=== PATIENT | male | born 1955 | race Caucasian/White ===

== ENCOUNTER 2017-05-15 04:53 | Observation (INO) | payer OTHER ==
[2017-05-15] MEDS ORDERED: Acetaminophen 500 MG TAB ONE (05:18)
[2017-05-15 05:48] LABS: #Eosinphils 0.1 thou/uL (0.0-0.7); #Lymphocytes 0.6 thou/uL (1.20-3.40); #Monocytes 0.8 thou/uL (0.11-0.59); #Neutrophils 5.7 thou/uL (1.40-6.50); %Basophils 0.4 % (0.0-1.0); %Eosinophils 0.8 % (0.0-10.0); %Lymphocytes 8.9 % (21.0-51.0); Hematocrit 42.8 % (42.0-52.0); Mean Platelet Volume 7.7 fL (7.4-10.4); Red Blood Cell (RBC) Count 4.39 mill/uL (4.70-6.10); White Blood Cell (WBC) Count 7.3 thou/uL (4.8-10.8)
[2017-05-15] MEDS ORDERED: Oseltamivir 75 MG CAP PO SCH (06:00)
[2017-05-15 06:08] LABS: Lactic Acid - Sepsis 1.3 mmol/L (0.5-2.2)
[2017-05-15 06:12] LABS: ALT (SGPT) 36 U/L (8-55); AST (SGOT) 29 U/L (5-34); Alkaline Phosphatase 61 U/L (40-150); Anion Gap 11 mmol/L (10-20); BUN (Urea Nitrogen) 18 mg/dL (8.4-25.7); Bilirubin, Total 0.8 mg/dL (0.2-1.2); CK (CPK) 396 U/L (30-200); Calc. Creatinine Clearance 0 mL/min (70-130); Carbon Dioxide 23 mmol/L (23-31); Chloride 104 mmol/L (98-107); Estimated GFR-MDRD 67; Globulin 2.7 g/dL (2.4-3.5); Lipase 91 U/L (8-78); Protein, Total 6.4 g/dL (5.8-8.1)
[2017-05-15 06:14] LABS: Troponin I 0.022 ng/mL (< 0.028)
--- NOTE | 2017-05-15 08:19 | CT ---
PRELIMINARY REPORT/[facility]/EMERGENCY AFTER HOURS PROCEDURE: EXAM: CT Angiography Chest With Intravenous Contrast EXAM DATE/TIME: 05/15/2017 6:23 AM CLINICAL HISTORY: 62 years old, male; Signs and symptoms; Shortness of breath; Additional info: 62 y/o m with presentat ion of fever x2 days, +sick contacts with known dx of influenza. Pt reports tmax 103 and states that symtoms started with malaise and cough. Pt also reports that he started to feel cramping in his lle. Pt was given zpack and steroids at urgent care (took first dose last night) and reports recent travel to [place]. Denies HX of dvt/pe, any other complaints. TECHNIQUE: Axial computed tomographic angiography images of the chest with intravenous contrast using pulmonary embolism protocol. All CT scans at this facility use one or more dose reduction techniques, viz.: aut omated exposure control; ma/kV adjustment per patient size (including targeted exams where dose is ma tched to indication; i.e. head); or iterative reconstruction technique. Coronal reformatted images were created and reviewed. CONTRAST: 100 mL of isovue 370 administered intravenously. COMPARISON: No relevant prior studies available. FINDINGS: Pulmonary arteries: No dissection. No visualized embolism as characterized to the proximal segmental level. Aorta: No acute findings. No thoracic aortic aneurysm. Lungs: Lungs are well aerated without a focal area of consolidation. Pleural space: Unremarkable. No significant effusion. No pneumothorax. Heart: Borderline cardiomegaly No significant pericardial effusion. No evidence of RV dysfunction. Bones/joints: No acute fracture. No dislocation. Soft tissues: Unremarkable. Lymph nodes: Unremarkable. No enlarged lymph nodes. Liver: Fatty infiltration of the liver. IMPRESSION: 1. No dissection. No visualized embolism as characterized to the proximal segmental level. 2. Lungs are well aerated without a focal area of consolidation. mild basilar atelectasis. Thank you for allowing us to participate in the care of your patient. Dictated and Authenticated by: Fernando Dooley MD 05/15/2017 7:25 AM Central Time ([place] & [place]) FINAL REPORT EMERGENCY AFTER HOURS CT ARTERIOGRAM CHEST WITH IV CONTRAST AND 3D MIP IMAGING: Date: 05/15/17 Time: 0625 hours HISTORY: Chest pain. Dyspnea. FINDINGS: Findings agree with the preliminary report by Cathi. There is no CT evidence of pulmonary embolus or t horacic aortic dissection. Mild atelectasis is present at each lung base. POS: [facility]
--- NOTE | 2017-05-15 08:46 | RAD ---
FRONTAL RADIOGRAPH CHEST PORTABLE UPRIGHT: DATE: 05/15/17. COMPARISON: None. HISTORY: Chest pain, dizziness, and fever. FINDINGS: No pneumothorax or pleural fluid. No focal consolidation or alveolar edema. Minimal increased linea r density noted in the inferior lung bases, left greater than right. IMPRESSION: No focal consolidation or alveolar edema. POS: OFF
[2017-05-15 08:48] LABS: Bilirubin Negative (Negative); Blood, Urine Negative (Negative); Glucose, Urine (Dipstick) Negative (Negative); Ketone, Urine Negative (Negative); Nitrite Negative (Negative); Protein, Urine (Dipstick) Negative (Neg-Trace)
[2017-05-15] MEDS ORDERED: Calcium Carbonate 500 MG ChewTAB PO PRN (09:54)
[2017-05-15] MEDS ORDERED: Zolpidem Tartrate 5 MG TAB PO PRN (09:54)
[2017-05-15] MEDS ORDERED: HYDROcodone/Acetaminophen 5/325 mg Tablet PO PRN (09:54)
[2017-05-15] MEDS ORDERED: hydrALAZINE 20 MG/ML VIAL SLOW IVP PRN (09:54)
[2017-05-15] MEDS ORDERED: Ondansetron HCl/PF 4 MG/2 ML Vial IVP PRN (09:54)
[2017-05-15 10:02] VITALS: BMI 29.9
[2017-05-15] MEDS: Oseltamivir 75 MG CAP PO SCH ×2 (10:11→20:35)
[2017-05-15] MEDS: Benzonatate 100 MG CAP PO PRN ×2 (10:23→17:31)
[2017-05-15] MEDS: Sodium Chloride 0.9% 1,000 ML IV SCH ×2 (10:23→20:34)
[2017-05-15] MEDS ORDERED: ISOVUE-370 76%-LOCM 1 ML ONE (13:23)
[2017-05-15] MEDS: Acetaminophen 325 MG TAB PO PRN (15:09)
[2017-05-15] MEDS: Famotidine 20 MG TAB PO SCH (20:35)
[2017-05-15] MEDS: Docusate 100 MG CAP PO SCH (20:36)
--- NOTE | 2017-05-15 20:36 | HP ---
CHIEF COMPLAINT: Fever and cough. HISTORY OF PRESENT ILLNESS: This is a 62-year-old pleasant gentleman who was apparently in his usual state of health, started having a light fever and cough since Thursday, it got worse and he recorded t emperatures as high as 103. The patient was also having muscle weakness and fatigue. He went to the Urgent Care who discharged him with Z-Gallo and steroids, but it had no effect. He was feeling really terrible, so he came into the hospital where a flu swab test was done and he was diagnosed with infl uenza A. Because of his cough, dehydration, muscle fatigue and weakness, he was admitted for further evaluation and treatment. He also had a CT scan of the chest with PE protocol because of his hypoxi a and because of shortness of breath, which did not show any pulmonary embolism or pneumonia. The devaughn pinon is being admitted for evaluation and treatment of the flu and the shortness of breath. PAST MEDICAL HISTORY: Significant for hypertension, hyperlipidemia and anxiety. PAST SURGICAL HISTORY: Significant for hernia repair and a deviated nasal septum surgery. SOCIAL HISTORY: Denies recreational drugs or smoking. Occasional alcohol use. MEDICATIONS: Include fosinopril 10 mg p.o. daily and Lexapro 10 mg p.o. daily. ALLERGIES: None. FAMILY HISTORY: Negative for diabetes and hypertension. REVIEW OF SYSTEMS: Significant for weakness, fever, chills and cough. Otherwise, no diarrhea, dysur ia or polyuria. No memory or mood changes. No neck pain, no headache, no eye pain, no hearing loss, no latencies, no chest pain. PHYSICAL EXAMINATION: VITAL SIGNS: Blood pressure is 142/65, pulse of 102 when he came into the emergency room, respiratio ns were 24, saturations were 97, blood pressure was 146/89 and temperature was 103.2. GENERAL: The patient was lying in bed in mild distress because of the fever. He was tachycardic and appearing uncomfortable. HEENT: Atraumatic and normocephalic. Pupils are equally round and reactive to light. Extraocular m ovements are intact. Mucous membranes are moist. NECK: No JVD. CHEST: Breath sounds heard. No rales or rhonchi. HEART: S1 and S2 normal. No murmurs or gallops. ABDOMEN: Soft. EXTREMITIES: No cyanosis, clubbing or edema. Distal pulses present. NEUROLOGIC: Alert, awake and oriented. No cranial nerve deficits. No sensorimotor deficits. LABORATORY AND IMAGING DATA: WBC count is 7.3 and hemoglobin 14. Potassium is 3.6, creatinine is 1. 1. CK was 396. Flu A was positive. CTA as described earlier showed no PE or pneumonia. ASSESSMENT AND PLAN: 1. Systemic inflammatory response syndrome secondary to influenza A. We will admit the patient and put the patient on Tamiflu, symptomatic treatment for the cough, fever and muscle weakness and we joanna l cover with some Levaquin as well. 2. Acute bronchitis secondary to superinfection. We will put the patient on Levaquin. 3. Dehydration. We will give the patient IV fluids. 4. Hypertension. We will monitor that and give p.r.n. medications and continue home medications. 5. Hyperlipidemia, stable. 6. Sequential compression devices for deep venous thrombosis prophylaxis. I will follow the labs an d do the need for.
[2017-05-16] MEDS: Acetaminophen 325 MG TAB PO PRN ×2 (00:21→13:51)
[2017-05-16] MEDS: Sodium Chloride 0.9% 1,000 ML IV SCH ×2 (05:07→13:51)
[2017-05-16 05:44] LABS: Anion Gap 9 mmol/L (10-20); BUN (Urea Nitrogen) 15 mg/dL (8.4-25.7); Calc. Creatinine Clearance 108 mL/min (70-130); Calcium 7.9 mg/dL (7.8-10.44); Carbon Dioxide 25 mmol/L (23-31); Chloride 106 mmol/L (98-107); Estimated GFR-MDRD 73
[2017-05-16 06:37] LABS: Band 5 % (5-11); Hematocrit 42.7 % (42.0-52.0); Mean Platelet Volume 7.9 fL (7.4-10.4); Neutrophil 56 % (42-75); Red Blood Cell (RBC) Count 4.32 mill/uL (4.70-6.10)
[2017-05-16] MEDS: Oseltamivir 75 MG CAP PO SCH ×2 (08:20→20:16)
[2017-05-16] MEDS: Famotidine 20 MG TAB PO SCH ×2 (08:20→20:16)
[2017-05-16] MEDS: Docusate 100 MG CAP PO SCH ×2 (08:20→20:16)
[2017-05-16] MEDS: Benzonatate 100 MG CAP PO PRN (13:51)
--- NOTE | 2017-05-16 14:29 | PDOC.PN ---
- Subjective Encounter Start Date: 05/16/17 Encounter Start Time: 14:28 Patient seen and examined. No new complaints. No overnight events had some fever and still coughing - Objective MAR Reviewed: Yes Vital Signs & Weight: Vital Signs (12 hours) Temp Pulse Resp BP Pulse Ox 05/16/17 11:55 100.0 F H 70 20 152/83 H 93 L 05/16/17 08:00 98.3 F 56 L 20 155/80 H 93 L 05/16/17 03:13 98.8 F 70 16 160/85 H 91 L Weight Weight 226 lb 8 oz I&O: 05/15/17 05/16/17 05/17/17 06:59 06:59 06:59 Intake Total 1720 1550 Output Total 900 Balance 820 1550 Result Diagrams: 05/16/17 04:55 05/16/17 04:55 Phys Exam - Physical Examination Constitutional: NAD HEENT: PERRLA Neck: no JVD Respiratory: no wheezing Cardiovascular: no significant murmur Gastrointestinal: non-tender Neurological: moves all 4 limbs Psychiatric: A&O x 3 Dx/Plan (1) SIRS (systemic inflammatory response syndrome) Code(s): R65.10 - SIRS OF NON-INFECTIOUS ORIGIN W/O ACUTE ORGAN DYSFUNCTION Status: Acute (2) Influenza A Code(s): J10.1 - FLU DUE TO OTH IDENT INFLUENZA VIRUS W OTH RESP MANIFEST Status: Acute (3) Acute bronchitis Code(s): J20.9 - ACUTE BRONCHITIS, UNSPECIFIED Status: Acute (4) HTN (hypertension) Code(s): I10 - ESSENTIAL (PRIMARY) HYPERTENSION Status: Acute (5) Hyperlipidemia Code(s): E78.5 - HYPERLIPIDEMIA, UNSPECIFIED Status: Acute - Plan * cont current mx * d/c in am if clinically better
[2017-05-17] MEDS: Famotidine 20 MG TAB PO SCH (08:27)
[2017-05-17] MEDS: Oseltamivir 75 MG CAP PO SCH (08:27)
[2017-05-17] MEDS: Docusate 100 MG CAP PO SCH (08:27)
[2017-05-17 11:37] VITALS: BP 166/93; TEMP 98.6
--- NOTE | 2017-05-17 14:58 | PDOC.PN ---
- Subjective Encounter Start Date: 05/17/17 Encounter Start Time: 14:57 Patient seen and examined. No new complaints. No overnight events - Objective MAR Reviewed: Yes Vital Signs & Weight: Vital Signs (12 hours) Temp Pulse Resp BP Pulse Ox 05/17/17 11:27 98.6 F 69 16 166/93 H 93 L 05/17/17 10:38 77 15 95 05/17/17 08:30 98.6 F 69 16 05/17/17 08:10 97.7 F 63 18 156/91 H 96 05/17/17 04:00 98.4 F 60 18 155/93 H 93 L Weight Weight 226 lb 8 oz I&O: 05/16/17 05/17/17 05/18/17 06:59 06:59 06:59 Intake Total 1720 3270 Output Total 900 2300 Balance 820 970 Result Diagrams: 05/16/17 04:55 05/16/17 04:55 Phys Exam - Physical Examination Constitutional: NAD HEENT: PERRLA Neck: no JVD Respiratory: no rales Cardiovascular: no significant murmur Gastrointestinal: non-tender Musculoskeletal: pulses present Neurological: moves all 4 limbs Psychiatric: A&O x 3 Dx/Plan (1) SIRS (systemic inflammatory response syndrome) Code(s): R65.10 - SIRS OF NON-INFECTIOUS ORIGIN W/O ACUTE ORGAN DYSFUNCTION Status: Acute (2) Influenza A Code(s): J10.1 - FLU DUE TO OTH IDENT INFLUENZA VIRUS W OTH RESP MANIFEST Status: Acute (3) Acute bronchitis Code(s): J20.9 - ACUTE BRONCHITIS, UNSPECIFIED Status: Acute (4) HTN (hypertension) Code(s): I10 - ESSENTIAL (PRIMARY) HYPERTENSION Status: Acute (5) Hyperlipidemia Code(s): E78.5 - HYPERLIPIDEMIA, UNSPECIFIED Status: Acute - Plan * doing well * d/c home
--- NOTE | 2017-05-17 21:08 | DIS ---
DATE OF ADMISSION: 05/15/2017 DATE OF DISCHARGE: 05/17/2017 DISCHARGE DIAGNOSES: 1. Systemic inflammatory response syndrome, better. 2. Acute bronchitis better. 3. Influenza A, stable. 4. Dehydration, stable. 5. Hypertension, stable. 6. Hyperlipidemia, stable. DISCHARGE MEDICATIONS: Include Tamiflu 75 mg p.o. b.i.d. for the next 3 days, Levaquin 750 p.o. micaela y for the next 5 days, Tessalon Perles 100 mg p.o. t.i.d. p.r.n. for cough and continuation of all ot her home medications. BRIEF HOSPITAL COURSE: A 62-year-old pleasant gentleman who came into the hospital with fever and co ugh. Please refer to my H&P for further details. The patient was admitted. He was found to have in fluenza A. He was put on Tamiflu and Levaquin for the acute bronchitis, which was because of the sup er infection. The patient improved with this treatment. He was also given IV fluids for his dehydra tion. The patient is doing much better right now. He is medically stable to be discharged. He is a sked to follow up with his regular doctor in about a week for further evaluation. Patient is right n ow medically stable to be discharged. He is asked to come back to the emergency room in case symptom s return. Total time for this discharge took 35 minutes.
== END 2017-05-17 14:59 | disposition home or self-care (01) ==
LOC: ERS 04:53 → INTOOBSV 09:52 → 2SE 09:52
PROVIDERS: ADMIT Internal Medicine; ATTEND Internal Medicine
DX: J10.1 Influenza due to other identified influenza virus with other respiratory manifestations (principal); J20.9 Acute bronchitis, unspecified; E86.0 Dehydration; I10 Essential (primary) hypertension; E78.5 Hyperlipidemia, unspecified; F41.9 Anxiety disorder, unspecified; Z79.899 Other long term (current) drug therapy; Z98.890 Other specified postprocedural states
CPT/HCPCS: 36415; 71010; 71275; 80048; 80053; 81003; 82553; 83605; 83690; 84443; 84484; 85025; 87040; 87086; 93005; 94640; 94760; 96361; 96365; 96366; A4216; G0378; J1956; J7620

== ENCOUNTER 2025-04-19 13:25 | Outpatient (CLI) | payer MEDICARE, BC ==
[2025-04-19 15:02] LABS: Estimated GFR - POC 59.0
== END 2025-04-19 13:26 | disposition home or self-care (01) ==
LOC: SCSMRI 13:25
PROVIDERS: ATTEND Urology
DX: R97.20 Elevated prostate specific antigen [PSA] (principal)
CPT/HCPCS: 36415; 72197; 82565